=== PATIENT | female | born 1970 | race Two or more races ===

== ENCOUNTER 2019-03-08 15:25 | Emergency (ER) | payer MEDICARE ==
[~2019-03-08] VITALS: Ht 157.5 cm; Wt 78.5 kg
--- NOTE | 2019-03-08 15:35 | NUR ---
[facility] [id number] FROM [facility] for "osteo arthritic pain" Pt states "neck/back/kidney hurts". TO ER BED 10, HOOKED TO MONITOR, PROVIDED W WARM BLANKET, AWAITING MD ABARCA.
--- NOTE | 2019-03-08 15:57 | NUR ---
DR RAWLS AT BEDSIDE
[2019-03-08 15:58] LABS: BASOPHILS % (AUTO) 0.8 % (0.0-2.0); EOSINOPHILS % (AUTO) 4.5 % (0.0-6.0); HEMATOCRIT 37 % (33-45); HEMOGLOBIN 12.2 g/dL (11.5-14.8); LYMPHOCYTES % (AUTO) 25.3 % (20.0-44.0); MEAN CORPUSCULAR HGB CONC 33 g/dl (31.0-36.0); MEAN CORPUSCULAR VOLUME 87 fL (82-100); NEUTROPHILS % (AUTO) 62.4 % (43.0-81.0); PLATELET COUNT (AUTO) 288 /CMM (150-450); RED BLOOD CELL COUNT(AUTO) 4.28 MIL/uL (4.0-5.2); WHITE BLOOD COUNT (AUTO) 6.4 K/uL (4.3-11.0)
[2019-03-08 15:59] LABS: BASOPHILS # (AUTO) 0.1 /CMM (0.0-0.2); LYMPHOCYTES # (AUTO) 1.6 /CMM (0.8-4.8); MONOCYTES # (AUTO) 0.4 /CMM (0.1-1.30)
[2019-03-08 16:11] LABS: CALCIUM, SERUM 8.5 mg/dL (8.5-10.1); CREATININE 0.8 mg/dL (0.6-1.3); POTASSIUM 3.7 mmol/L (3.5-5.1)
[2019-03-08 16:22] LABS: APPEARANCE,URINE Clear (CLEAR); BILIRUBIN,URINE Negative (NEGATIVE); BLOOD, URINE Negative Ery/uL (NEGATIVE); COLOR,URINE Yellow (YELLOW); KETONES,URINE Negative (NEGATIVE); LEUKOCYTE ESTERASE ,URINE Trace (NEGATIVE); NITRITE, URINE Negative (NEGATIVE); PROTEIN,URINE Negative (NEGATIVE); UGLUCOSE Negative (NEGATIVE); UROBILINOGEN,URINE 0.2 EU/dL (0.2)
[2019-03-08 16:25] LABS: ALBUMIN 3.4 g/dL (3.4-5.0); BILIRUBIN,DIRECT 0.1 mg/dL (0.0-0.2); BILIRUBIN,TOTAL 0.2 mg/dL (0.2-1.0); TOTAL PROTEIN, SERUM 6.7 g/dL (6.4-8.2)
[2019-03-08 16:27] LABS: BACTERIA,URINE 1+ /HPF (None Seen); MUCUS,URINE Few /LPF (None Seen); RBC,URINE 0-2 /HPF (0-2); SQUAMOUS EPITHELIAL CELL,UR Few /HPF (None Seen); WBC,URINE 0-2 /HPF (0-3)
[2019-03-08] MEDS ORDERED: IBUPROFEN 600 MG TABLET PO ONE ×2 (17:11→17:30)
--- NOTE | 2019-03-08 17:20 | NUR ---
ALEX ARNOLD [id number] TRIP#[id number]
--- NOTE | 2019-03-08 18:34 | NUR ---
REPORT GIVEN TO [facility]
--- NOTE | 2019-03-08 19:20 | NUR ---
Patient picked up by [facility] [id number] in stable condition. Written and verbal after care instructions given. Patient verbalizes understanding of instruction. patient will be brought to [facility].
[2019-03-08 19:32] VITALS: BP 126/86
== END 2019-03-08 19:25 | disposition home or self-care (01) ==
LOC: ER 15:31
DX: M54.2 Cervicalgia (principal); M54.9 Dorsalgia, unspecified; R30.0 Dysuria; G89.29 Other chronic pain; E78.5 Hyperlipidemia, unspecified; F31.9 Bipolar disorder, unspecified; F17.200 Nicotine dependence, unspecified, uncomplicated; F41.9 Anxiety disorder, unspecified
CPT/HCPCS: 36415; 80048-TC; 80076-TC; 81000-TC; 84703-TC; 85025-TC